=== PATIENT | female | born 1990 | race Caucasian/White ===

== ENCOUNTER 2019-08-16 11:50 | Emergency (ER) | payer OTHER ==
[~2019-08-16] VITALS: Ht 162.6 cm; Wt 57.6 kg
== END 2019-08-16 13:54 | disposition home or self-care (01) ==
LOC: ER 11:50
DX: J03.80 Acute tonsillitis due to other specified organisms (principal)

== ENCOUNTER 2021-08-14 16:36 | Emergency (ER) | payer OTHER ==
[~2021-08-14] VITALS: Ht 162.6 cm; Wt 59.0 kg
[2021-08-14] MEDS ORDERED: NITROFURANTOIN100 MG PO (18:42)
== END 2021-08-14 18:46 | disposition home or self-care (01) ==
LOC: ER 16:36
DX: N39.0 Urinary tract infection, site not specified (principal); J03.90 Acute tonsillitis, unspecified; J06.9 Acute upper respiratory infection, unspecified; B34.9 Viral infection, unspecified; Z20.822 Contact with and (suspected) exposure to COVID-19

== ENCOUNTER 2021-10-11 19:52 | Emergency (ER) | payer OTHER ==
[~2021-10-11] VITALS: Ht 162.6 cm; Wt 55.3 kg
[~2021-10-11 19:52] MED LIST: NITROFURANTOIN100 MG PO
== END 2021-10-11 21:53 | disposition home or self-care (01) ==
LOC: ER 19:52
DX: N39.0 Urinary tract infection, site not specified (principal)

== ENCOUNTER 2021-10-18 17:46 | Emergency (ER) | payer OTHER ==
[~2021-10-18] VITALS: Ht 162.6 cm; Wt 55.8 kg
[2021-10-18] MEDS ORDERED: TUSNEL LIQUID178 ML PO (20:31)
[2021-10-18] MEDS ORDERED: ZITHROMAX500 MG PO (20:31)
[2021-10-18] MEDS ORDERED: DOLOGEN CAPLET1 EACH PO (20:31)
[2021-10-18] MEDS ORDERED: MEDROLPACK PO (20:31)
== END 2021-10-18 20:49 | disposition home or self-care (01) ==
LOC: ER 17:46
DX: U07.1 COVID-19 (principal)

== ENCOUNTER 2021-10-24 16:16 | Emergency (ER) | payer OTHER ==
[~2021-10-24] VITALS: Ht 162.6 cm; Wt 55.8 kg
[~2021-10-24 16:16] MED LIST changes: +DOLOGEN CAPLET1 EACH PO; +MEDROLPACK PO; +TUSNEL LIQUID178 ML PO; +ZITHROMAX500 MG PO
== END 2021-10-24 20:52 | disposition home or self-care (01) ==
LOC: ER 16:16
DX: U07.1 COVID-19 (principal); B96.0 Mycoplasma pneumoniae [M. pneumoniae] as the cause of diseases classified elsewhere